=== PATIENT | female | born 2005 | race African-American/Black ===

== ENCOUNTER 2024-02-09 14:38 | Emergency (ER) | payer MEDICAID, OTHER ==
[~2024-02-09] VITALS: Ht 170.2 cm; Wt 65.0 kg
[2024-02-09 15:18] VITALS: BP 120/74; PULSE 87; RESP 22; TEMP 97.7; O2SAT 98
[2024-02-09] MEDS ORDERED: IBUP-1454 PO (15:49)
== END 2024-02-09 16:11 | disposition home or self-care (01) ==
LOC: EDBD 14:38 → ER 14:42
DX: S83.104A Unspecified dislocation of right knee, initial encounter (principal); X58.XXXA Exposure to other specified factors, initial encounter; Y93.89 Activity, other specified; Y92.89 Other specified places as the place of occurrence of the external cause; Y99.8 Other external cause status
CPT/HCPCS: 73562